=== PATIENT | female | born 1980 | race Caucasian/White ===

== ENCOUNTER 2018-09-15 16:10 | Emergency (ER) | payer OTHER ==
[~2018-09-15] VITALS: Ht 152.4 cm; Wt 80.3 kg
[2018-09-15 16:40] LABS: ABSOLUTE NEUTROPHILS 2.6 thou/uL (1.4-8.2); BASOPHILS 0.7 % (0.0-2.0); EOSINOPHILS 1.8 % (0.0-3.0); HEMOGLOBIN 13.9 gm/dL (12.0-15.0); LYMPHOCYTES 34.1 % (24.0-44.0); MCH 32.6 pg (26.0-34.0); MCHC 34.7 g/dL (28.0-37.0); MONOCYTES 8.2 % (1.0-8.0); PLATELET COUNT 249 thou/uL (150-400); POLYS 55.2 % (36.0-66.0); RBC 4.25 mil/uL (4.20-5.00); RDW 12.6 % (10.5-14.5); WBC 4.8 thou/uL (4.0-11.0)
[2018-09-15 16:40] LABS: URINE BILIRUBIN NEGATIVE (Negative); URINE BLOOD 3+ (Negative); URINE CLARITY CLEAR; URINE COLOR YELLOW; URINE GLUCOSE-RANDOM* NEGATIVE (Negative); URINE KETONES NEGATIVE (Negative); URINE LEUKOCYTES NEGATIVE (Negative); URINE NITRITE NEGATIVE (Negative); URINE PROTEIN (DIPSTICK) NEGATIVE (Negative); URINE SPECIFIC GRAVITY 1.015 (1.005-1.035); URINE UROBILINOGEN 0.2 E.U./dl (0.2-1.0)
[2018-09-15 16:46] LABS: CALCIUM 8.5 mg/dL (8.5-10.1); POTASSIUM 3.7 mmol/L (3.5-5.1)
[2018-09-15 16:50] LABS: CASTS None Seen /LPF (None Seen); CRYSTALS None Seen /LPF (None Seen); SQUAMOUS 0-3 Few /LPF (0-3); URINE RBC >20 Many /HPF (0-2); URINE WBC None Seen /HPF (0-5)
[2018-09-15 16:51] LABS: BACTERIA None Seen /HPF (None Seen)
[2018-09-15] MEDS ORDERED: VITAFOL-OB+DHA1 EACH PO (18:51)
[2018-09-15 18:55] VITALS: BP 133/92
== END 2018-09-15 18:56 | disposition home or self-care (01) ==
LOC: ER 16:10
PROVIDERS: Physician Assistant
DX: O20.0 Threatened abortion (principal); Z3A.08 8 weeks gestation of pregnancy

== ENCOUNTER 2019-03-25 22:03 | Inpatient (IN) | payer OTHER ==
[~2019-03-25] VITALS: Ht 157.5 cm; Wt 106.6 kg
[~2019-03-25 22:03] MED LIST: VITAFOL-OB+DHA1 EACH PO
[2019-03-25 22:08] VITALS: BP 162/99
[2019-03-25 22:50] LABS: ABSOLUTE NEUTROPHILS 2.4 thou/uL (1.4-8.2); BASOPHILS 0.9 % (0.0-2.0); EOSINOPHILS 2.6 % (0.0-3.0); HEMATOCRIT 34.5 % (37.0-47.0); HEMOGLOBIN 11.7 gm/dL (12.0-15.0); LYMPHOCYTES 44.5 % (24.0-44.0); MCH 31.1 pg (26.0-34.0); MCHC 33.9 g/dL (28.0-37.0); MCV 91.7 fL (80.0-100.0); MONOCYTES 7.4 % (1.0-8.0); PLATELET COUNT 258 thou/uL (150-400); POLYS 44.6 % (36.0-66.0); RBC 3.76 mil/uL (4.20-5.00); RDW 12.3 % (10.5-14.5); WBC 5.3 thou/uL (4.0-11.0)
[2019-03-25 23:02] LABS: ANION GAP 11 mmol/L (7-16); BUN 24 mg/dL (7-18); CALCIUM 8.9 mg/dL (8.5-10.1); CHLORIDE 104 mmol/L (98-107); CO2 22 mmol/L (21-32); CREATININE 1.1 mg/dL (0.6-1.0); GLUCOSE 108 mg/dL (74-106); POTASSIUM 3.6 mmol/L (3.5-5.1); SODIUM 137 mmol/L (136-145)
[2019-03-25 23:05] LABS: APTT 28.1 Seconds (24.5-32.8)
[2019-03-25 23:12] LABS: ALBUMIN 3.1 g/dL (3.4-5.0); SGOT 20 U/L (15-37); SGPT 17 U/L (30-65); TOTAL BILIRUBIN 0.2 mg/dL (<0.1-1.0); TOTAL PROTEIN 7.3 g/dL (6.4-8.2); TROPONIN-I <0.06 ng/mL (<0.06)
[2019-03-25 23:54] LABS: URINE BILIRUBIN NEGATIVE (Negative); URINE BLOOD NEGATIVE (Negative); URINE CLARITY CLEAR; URINE COLOR YELLOW; URINE GLUCOSE-RANDOM* NEGATIVE (Negative); URINE KETONES NEGATIVE (Negative); URINE LEUKOCYTES NEGATIVE (Negative); URINE NITRITE NEGATIVE (Negative); URINE PROTEIN (DIPSTICK) 1+ (Negative); URINE SPECIFIC GRAVITY 1.015 (1.005-1.035); URINE UROBILINOGEN 0.2 E.U./dl (0.2-1.0)
[2019-03-26 00:14] LABS: BACTERIA None Seen /HPF (None Seen); CASTS None Seen /LPF (None Seen); CRYSTALS None Seen /LPF (None Seen); MUCUS None Seen strn/LPF (None Seen); SQUAMOUS 4-10 Moderate /LPF (0-3); URINE RBC None Seen /HPF (0-2); URINE WBC None Seen /HPF (0-5)
[2019-03-26] MEDS ORDERED: LABETALOL HCL100 MG PO (01:10)
[2019-03-26] MEDS ORDERED: LEXAPRO 10 MG T10 M1 PO (01:11)
[2019-03-26 09:12] VITALS: BP 135/87
[2019-03-26 11:05] VITALS: BP 135/87
[2019-03-26 11:44] VITALS: BP 131/87
[2019-03-26 12:07] VITALS: BP 117/79
[2019-03-26 15:13] VITALS: BP 102/63
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
[2019-03-26] MEDS ORDERED: ASPIR 8181 MG PO (17:45)
[2019-03-26] MEDS ORDERED: LIPITOR 20 MG T20 M1 PO (17:55)
[2019-03-26 18:24] VITALS: BP 102/63
[2019-03-26 18:30] LABS: CHOLESTEROL 203 mg/dL (<200); HDL CHOLESTEROL 52 mg/dL (>40); LDL CHOLESTEROL 115 mg/dL (<100); TC:HDL 3.9 Ratio (Not establshd); TRIGLYCERIDE 181 mg/dL (<150); VLDL 36 mg/dL (<40)
== END 2019-03-26 18:51 | disposition home or self-care (01) | DRG 69 ==
LOC: ER 22:03 → EROBS 03-26 01:58 → 3W 03-26 11:56
PROVIDERS: Emergency Medicine; ADMIT Internal Medicine
DX: G45.9 Transient cerebral ischemic attack, unspecified (principal); I10 Essential (primary) hypertension; E66.9 Obesity, unspecified; Z79.82 Long term (current) use of aspirin; Z79.899 Other long term (current) drug therapy; Z68.41 Body mass index [BMI] 40.0-44.9, adult; Z83.3 Family history of diabetes mellitus
CPT/HCPCS: 10879